=== PATIENT | female | born 1960 | race Caucasian/White ===

== ENCOUNTER → 2017-03-22 | Outpatient (REF) ==
[2016-04-17 18:10] VITALS: BP 108/78
[~2017-03-22] MED LIST: ALDACTONE 25MG25 M1 PO; BIOTIN1 MG PO; BLACK COHOSH540 MG PO; CINNAMON500 MG PO; ELDERBERRY200 MG PO; KELP TABLETS1 TAB PO; METHOTREXATE2.5 MG PO; MULTIPLE VITAMI1 CAP PO; NIACIN500 MG PO; PHENTERMINE37.5 MG PO; ST. JOHN'S WOR300 MG PO; TYLENOL EXTRA500 M1 PO; ULTRAM 50MG TAB50 MG PO
== END ==
LOC: LAB 12:35
DX: R74.0 Nonspecific elevation of levels of transaminase and lactic acid dehydrogenase [LDH] (principal); M06.9 Rheumatoid arthritis, unspecified; E78.5 Hyperlipidemia, unspecified; E03.9 Hypothyroidism, unspecified

== ENCOUNTER 2017-04-23 16:30 | Outpatient (RCR) | payer OTHER ==
[2016-04-17 18:10] VITALS: BP 108/78
== END 2017-06-06 11:44 | disposition home or self-care (01) ==
LOC: PT 16:30
DX: H81.392 Other peripheral vertigo, left ear (principal)